=== PATIENT | female | born 1965 | race Caucasian/White ===

== ENCOUNTER 2019-07-11 13:04 | Emergency (ER) | payer SELFPAY ==
[2019-07-11] MEDS ORDERED: Acetaminophen/Codeine 30-300mg Tablet ONE (13:29)
== END 2019-07-11 13:50 | disposition home or self-care (01) ==
LOC: NAV ERS 13:04
DX: S61.012A Laceration without foreign body of left thumb without damage to nail, initial encounter (principal); F17.210 Nicotine dependence, cigarettes, uncomplicated; W26.8XXA Contact with other sharp object(s), not elsewhere classified, initial encounter
CPT/HCPCS: 99282

== ENCOUNTER 2020-09-17 17:27 | Emergency (ER) | payer SELFPAY ==
--- NOTE | 2020-09-17 18:50 | RAD ---
Exam:4 views left knee HISTORY: Pain and injury COMPARISON: None FINDINGS: Small joint effusion. Preserved joint spaces. No fracture. IMPRESSION: Joint effusion, without fracture. If there is concern for internal derangement, nonemerge nt MRI
== END 2020-09-17 19:20 | disposition home or self-care (01) ==
LOC: NAV ERS 17:27
DX: S83.92XA Sprain of unspecified site of left knee, initial encounter (principal); W18.09XA Striking against other object with subsequent fall, initial encounter; F17.210 Nicotine dependence, cigarettes, uncomplicated

== ENCOUNTER 2024-04-28 14:30 | Emergency (ER) | payer OTHER, SELFPAY | END 2024-04-28 15:30 | disposition home or self-care (01) | LOC: NAV ERS 14:30 | DX: R14.0 Abdominal distension (gaseous) (principal); F17.290 Nicotine dependence, other tobacco product, uncomplicated | CPT/HCPCS: 99283 ==